=== PATIENT | male | born 1990 | race Caucasian/White ===

== ENCOUNTER 2017-09-08 19:34 | Emergency (ER) | payer BC ==
[~2017-09-08] VITALS: Ht 170.2 cm; Wt 77.3 kg
[~2017-09-08 19:34] MED LIST: BACTRIM DS1 TAB PO; CIPROFLOXACN500 MG PO; NAPROSYN500 MG OR; NO; NO HOME MEDS; PENICILLN VK500 MG PO; PYRIDIUM200 MG PO; TYLENOL # 31 TA1 PO
[2017-09-08] MEDS ORDERED: MOTRIN800 MG PO (20:02)
[2017-09-08] MEDS ORDERED: AMOXICILLIN500 MG PO (20:02)
[2017-09-08] MEDS ORDERED: TRAMADOL HCL50 MG PO (20:02)
[2017-09-08 20:10] VITALS: BP 154/86
== END 2017-09-08 20:10 | disposition home or self-care (01) | DRG 159 ==
LOC: ED 19:34
DX: K02.9 Dental caries, unspecified (principal); K04.7 Periapical abscess without sinus; R13.10 Dysphagia, unspecified; R07.0 Pain in throat

== ENCOUNTER 2018-01-09 16:26 | Emergency (ER) | payer BC ==
[~2018-01-09] VITALS: Ht 170.2 cm; Wt 77.3 kg
[~2018-01-09 16:26] MED LIST changes: +AMOXICILLIN500 MG PO; +MOTRIN800 MG PO; +TRAMADOL HCL50 MG PO
[2018-01-09] MEDS ORDERED: CIPROFLOXACN500 MG PO (16:57)
[2018-01-09 17:01] VITALS: BP 138/93
== END 2018-01-09 17:14 | disposition home or self-care (01) | DRG 392 ==
LOC: ED 16:26
DX: R19.7 Diarrhea, unspecified (principal)